=== PATIENT | female | born 1985 | race Caucasian/White ===

== ENCOUNTER → 2021-01-18 | Day surgery (SDC) | payer BC ==
[~2021-01-18] VITALS: Ht 165.1 cm; Wt 53.5 kg
[~2021-01-18] MED LIST: COLACE 100MG C100 MG PO; HYDROCODON-ACE1 EAC2 PO; IBUPROFEN600 MG PO; IRON325 M1 PO; LORTAB 5-325 M1 EACH PO; NAPROSYN EC 50500 MG PO; NORCO 5-325 TA1 EACH PO; PRENATA CHEWAB1 EACH PO; ZOFRAN 4 MG TAB4 MG PO
[2021-01-18 09:09] LABS: HEMOGLOBIN 13.1 gm/dl (12.3-15.3); RED BLOOD COUNT 4.66 M/UL (4.00-5.10); WHITE BLOOD COUNT 6.8 K/UL (4.5-11.0)
== END | disposition home or self-care (01) ==
LOC: OR 08:21
PROVIDERS: Obstetrics & Gynecology
DX: N75.0 Cyst of Bartholin's gland (principal); N89.8 Other specified noninflammatory disorders of vagina; B37.9 Candidiasis, unspecified; Z20.822 Contact with and (suspected) exposure to COVID-19; Z98.82 Breast implant status
CPT/HCPCS: 81001; 84703; 85025; J0690; J1100; J2001; J2250; J2405; J2704; J2795; J3010; J7120